=== PATIENT | male | born 1950 | race American Indian/Alaskan Native ===

== ENCOUNTER 2021-05-30 11:17 | Outpatient (CLI) | payer MEDICARE ==
--- NOTE | 2021-05-30 13:07 | XRay Report ---
CHEST 2 VIEWS INDICATION / CLINICAL INFORMATION: WEIGHT LOSS. COMPARISON: 05/31/20. FINDINGS: SUPPORT DEVICES: None. HEART / MEDIASTINUM: The heart size and pulmonary vasculature are normal. LUNGS / PLEURA: No significant pulmonary or pleural abnormality. No pneumothorax. ADDITIONAL FINDINGS: No significant additional findings. IMPRESSION: No acute abnormality or significant change. Signer Name: Darian Luna MD Signed: 05/30/2021 1:02 PM Workstation Name: [id number]
== END 2021-05-30 11:18 | disposition home or self-care (01) ==
LOC: XRAY 11:17
PROVIDERS: ATTEND Internal Medicine
DX: R61 Generalized hyperhidrosis (principal); R63.4 Abnormal weight loss
CPT/HCPCS: 71046